=== PATIENT | female | born 1955 | race Caucasian/White ===

== ENCOUNTER 2018-04-02 11:13 | Emergency (ER) | payer SELFPAY ==
[2018-04-02] MEDS ORDERED: Heparin Sodium 5,000 Units/ML Vial ONE (11:30)
[2018-04-02] MEDS ORDERED: Succinylcholine 200 MG/10 ML MDV ONE (11:30)
[2018-04-02] MEDS ORDERED: Amiodarone 150 MG/3 ML SDV ONE (11:30)
[2018-04-02] MEDS ORDERED: Midazolam 1 MG/ML 5 ML SDV ONE (11:30)
[2018-04-02] MEDS ORDERED: Midazolam 1 MG/ML 10 ML MDV ONE (11:30)
[2018-04-02] MEDS ORDERED: fentaNYL 100 MCG/2 ML SDV ONE (11:30)
--- NOTE | 2018-04-02 13:58 | EDM.PDOC ---
ED HPI GENERAL MEDICAL PROBLEM - General Chief Complaint: Syncope Stated Complaint: CPR IN PROGRESS Time Seen by Provider: 04/02/18 11:13 Source of Information: Reports: EMS History Limitations: Reports: Other (CPR inprogress unresponsive) - History of Present Illness INITIAL COMMENTS - FREE TEXT/NARRATIVE: This is a 62yo F brought in by EMS with CPR in progress. She was observed to fall and collapse and was not breathing. First responders arrived within about 10 minutes to [facility] [employer] where she works. She was started on CPR and brought in by ambulance to the ER in progress. Patient had 1 shock prior to arrival in ER. Patient has a history of HTN and prediabetes but no know heart disease or prior heart conditions. Onset: Sudden - Related Data Home Meds: Home Meds Mirtazapine 1 tab PO BEDTIME 04/02/18 [History] Venlafaxine HCl [Venlafaxine ER] 75 mg PO DAILY 04/02/18 [History] ED ROS GENERAL - Review of Systems Review Of Systems: ROS reveals no pertinent complaints other than HPI. ED EXAM, GENERAL - Physical Exam Exam: See Below Free Text/Narrative:: Patient was mottling and ears were blue, hands were cyanotic on arrival. There was some blood from the mouth. Leads were placed and Deshawn continued CPR. Patient was given a shock due to Ventricular Fibrillation and then CPR continued. Amiodarone was given at next Rhythm check and another shock was given for Pulseless Ventricular Tachycardia. A third shock was given at the next Rhythm check for V-tach. At the next Rhythm check there was a faint pulse. Patient intubated with vocal chord swelling and suction of blood from the pharynx prior and during intubation. Patient ROSC after 15 minutes of CPR on arrival with total time about 35 minutes from Cardiac arrest. Exam Limited By: Other (unresponsive) Eye Exam: Bilateral Eye: Abnormal Pupil, Other (pupils unresponsive) Throat/Mouth: Other (blood in the oropharynx) Respiratory/Chest: Crackles, Rales (b/l on bag mask and after intubation), Rhonchi Course - Orders/Labs/Meds Orders: Active Orders 24 hr Category Date Time Status Chest 1V Frontal [CR] Stat Exams 04/02/18 11:35 Taken Labs: Laboratory Tests 04/02/18 04/02/18 Range/Units 11:30 11:30 WBC 8.5 (4.0-11.0) K/uL RBC 5.97 H (3.80-5.80) M/uL Hgb 17.2 H (11.5-16.5) g/dL Hct 53.9 H (37.0-47.0) % MCV 90 (76-96) fL MCH 28.8 (27.0-32.0) pg MCHC 31.9 (31.0-35.0) g/dL RDW 16.0 (11.0-16.0) % Plt Count 271 (150-500) K/uL MPV 9.9 (6.0-10.0) fL Neut % (Auto) 19.0 L (45.0-70.0) % Lymph % (Auto) 75.9 H (20.0-40.0) % Kern % (Auto) 4.7 (3.0-10.0) % Eos % (Auto) 0.2 L (1.0-5.0) % Baso % (Auto) 0.2 (0.0-0.5) % Neut # (Auto) 1.61 L (2.00-7.50) K/uL Lymph # (Auto) 6.45 H (1.50-4.00) K/uL Kern # (Auto) 0.40 (0.20-0.80) K/uL Eos # (Auto) 0.02 L (0.04-0.40) K/uL Baso # (Auto) 0.02 (0.02-0.10) K/uL Sodium 144 (136-145) mmol/L Potassium 4.3 (3.5-5.1) mmol/L Chloride 104 (98-107) mmol/L Carbon Dioxide 21.8 (21.0-32.0) mmol/L Anion Gap 22.5 H (5.0-15.0) mmol/L BUN 10 (8-26) mg/dL Creatinine 1.02 (0.55-1.02) mg/dL Est Cr Clr Drug Dosing TNP Estimated GFR (MDRD) 55 L (>60) MLS/MIN BUN/Creatinine Ratio 9.8 (6-25) Glucose 201 H (74-100) mg/dL Calcium 9.0 (8.5-10.1) mg/dL Total Bilirubin 0.5 (0.0-1.0) mg/dL AST 183 H (15-37) U/L ALT 204 H (12-78) U/L Alkaline Phosphatase 119 H (46-116) U/L Troponin I 0.474 H* (0.000-0.060) ng/mL Total Protein 8.4 H (6.4-8.2) g/dL Albumin 4.2 (3.4-5.0) g/dL Globulin 4.2 (2.2-4.2) g/dL Albumin/Globulin Ratio 1.0 (0.8-2.0) - Re-Assessments/Exams Free Text/Narrative Re-Assessment/Exam: Patient placed on heparin drip with diagnosis of MD. Unable to ingest any medications. Unable to obtain a EG tube. Departure - Departure Time of Disposition: 12:45 Disposition: DC/Tfer to [facility] 02 Reason for Transfer *Q: Other Condition: Critical Clinical Impression: Myocardial infarction (lateral wall), Signs of return of spontaneous circulation, Cardiac arrest with successful resuscitation Referrals: PCP,None [Primary Care Provider] - Forms: ED Department Discharge - Problem List & Annotations (1) Cardiac arrest with successful resuscitation SNOMED Code(s): 681505818 Code(s): I46.9 - CARDIAC ARREST, CAUSE UNSPECIFIED Status: Acute Priority : High Current Visit: Yes (2) Myocardial infarction (lateral wall) SNOMED Code(s): 50600893 Code(s): I21.29 - STEMI INVOLVING OTH SITES Status: Acute Priority: High Current Visit: Yes (3) Signs of return of spontaneous circulation SNOMED Code(s): 417718069 Code(s): CFK7609 - Status: Acute Priority: High Current Visit: Yes - Problem List Review Problem List Initiated/Reviewed/Updated: Yes - My Orders Last 24 Hours: My Active Orders 04/02/18 11:35 Chest 1V Frontal [CR] Stat - Assessment/Plan Last 24 Hours: My Active Orders 04/02/18 11:35 Chest 1V Frontal [CR] Stat Plan: Patient transferred to [facility] for further management and care via [facility]. informed and will be on his way.
--- NOTE | 2018-04-02 15:45 | CR ---
DATE OF SERVICE: 04/02/18 CLINICAL DATA: unresponsive AP PORTABLE CHEST: There is significant metallic artifact obscuring the heart and both lower lungs. There is an endotracheal tube in place with its distal tip 2 cm above the stella. The exam is otherwise nondiagnostic. [id number] [facility]
== END 2018-04-02 12:41 ==
LOC: LB.ED 11:13
DX: I21.9 Acute myocardial infarction, unspecified (principal); I46.9 Cardiac arrest, cause unspecified; Z79.899 Other long term (current) drug therapy
CPT/HCPCS: 36415; 51702; 71045; 80053; 84484; 85025; 92950; 93005; 99285; A0425; A0429; J0282; J0330; J1644; J2250; J3010

== ENCOUNTER 2021-10-21 16:17 | Emergency (ER) | payer MEDICAID | END 2021-10-21 17:30 | disposition home or self-care (01) | LOC: LB.ED 16:17 | DX: M79.81 Nontraumatic hematoma of soft tissue (principal); I11.0 Hypertensive heart disease with heart failure; I50.22 Chronic systolic (congestive) heart failure; I25.10 Atherosclerotic heart disease of native coronary artery without angina pectoris; Z79.899 Other long term (current) drug therapy; Z79.01 Long term (current) use of anticoagulants | CPT/HCPCS: 72220; 73090-LT; 99283 ==